=== PATIENT | male | born 1955 ===

== ENCOUNTER 2018-04-19 17:04 | Emergency (ER) | payer BC ==
--- OUTSIDE RECORDS SUMMARY | 2018-04-19 17:27 | XMS REPORT ---
:1955 External Reference #:[id number] Author Organization [facility] Address [address] [place] [id number] Phone [phone] Care Team Providers Name Role Phone Ismael Hardy MD Care Team Information It Compliance Manager Unavailable Ismael Hardy MD Primary Care Physician Unavailable Payers Type Date Identification Numbers Payment Provider Subscriber Commercial Policy Number: [id number] [facility] [employer] Name: Archana Mcconnell [facility] [address] [address] PayID: [id number] [place] [address] Problems Date Description Provider Status Onset: 11/02/2011 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 Active Onset: 11/15/2011 Nocturia - finding Rosa Juarez M.D. Active Onset: 11/15/2011 Benign prostatic hypertrophy with Rosa Juarez M.D. Active outflow obstruction Onset: 11/18/2012 Testicular hypofunction Rosa Juarez M.D. Active Onset: Finding of frequency of urination Active Onset: 04/01/2014 Disease of blood AND/OR Ismael Hardy MD Active blood-forming organ Onset: 04/17/2011 Benign prostatic hypertrophy Ismael Hardy MD Active without outflow obstruction Onset: 04/17/2011 Impaired fasting glycaemia Ismael Hardy MD Active Family History Date Family Member(s) Problem(s) Comments First Brother Colon Cancer Second Brother Heart Condition Social History Type Date Description Comments Marital Status Patient is Occupation Director [employer] Cigarette Use 03/20/2018 Former Cigarette Smoker quit 35 years ago Cigars Patient smoking status is unknown Pipe Patient smoking status is unknown ETOH Use 1-2 monthly Allergies, Adverse Reactions, Alerts Date Description Reaction Status Severity Comments 04/26/2011 NKDA active Medications Medication Date Status Form Strength Qnty SIG Indications Ordering Provider Testosterone 06/20/ Active Solution 200mg/ml 2ml 100mg (1/2cc) Arnold P Cypionate 2015 intramuscular MD Bimal every week code f (give full vial) 1ML Tuberculin 11/14/ Active Misc 21G X 1" 4unit for Arnold P Syringe 2015 1 ML s intramuscular MD Bimal Detachable injection Needle Slip Tip 21GX1" 3ML Luer-Tj 05/01/ Active Misc 21G X 4unit use onc weekly Arnold P Syringe 2012 1-1/2" 3 s MD Bimal 21G X 1-1/2" ML Anusol-HC 11/04/ Active Cream 2.5% 16uni apply q hs to Ring, 2011 ts rectal area MD Ismael Ibuprofen 10/06/ Active Tablets 200mg 2 Tabs PO Q 4 Ring, 2007 HRS prn MD Ismael Tylenol 05/02/ Active Tablets 325mg prn Ring, 2005 MD Ismael Zyrtec Allergy / Active Capsules 10mg 1 by mouth Unknown 0000 every day Cold & Flu / Active Misc Capsule over the Unknown Multi-Symptom 0000 counter as Daytime/Nightt directed chalo Prevacid / Active Capsules otc Unknown 0000 Testosterone 05/04/ Hx Solution 200mg/ml 10ml inject 07/25 Ty Juarez 2015 - milliliters Lee M, 06/20/ intramuscular M.D. 2016 every week code f (give full vial) Montchanin 03/12/ Hx Pellet 500mcg 6unit 1 as directed Ann 2016 - s Lee M, 12/25/ M.D. 2017 Testosterone 11/17/ Hx Solution 100mg/ml 8unit 0.5 Ann Cypsheyla 2016 - s milliliters Lee M, 05/04/ intramuscular M.D. 2015 once weekly injection code f Testosterone 11/14/ Hx Solution 100mg/ml 8unit 50 milliliters Elhassan , Cypionate 2015 - s intramuscular Lee M, 11/17/ once weekly M.D. 2015 injection code f Stendra 04/06/ Hx Tablets 200mg 6tabs as needed N52.01 Ann, 2013 - Lee M, 06/30/ M.D. 2016 Testosterone 06/15/ Hx Oil 200mg/ml 10ml inject 1 Elhassan, Cypionate 2012 - milliliters Lee M, 05/12/ intramuscular M.D. 2014 every 1 weeks intramuscular as directed code f Androgel Pump 12/30/ Hx Gel 20.25mg/A 2bott 4 pumps day Ann, 2012 - ct les code f Rosa Marinelli, 10/06/ (1.62%) M.D. 2013 Prilosec OTC 04/14/ Hx Tablets 20mg 1 po qd Ring, 2008 - DR Ismael MD 2015 Ibuprofen / Hx Capsules 42cap bid Unknown 0000 - s 2013 Prilosec / Hx Capsules 20mg 30cap Unknown 0000 - DR s 2015 Tylenol / Hx Liquid 650ml Unknown 0000 - 2015 Mobic / Hx Tablets 60tab 1 po bid Unknown 0000 - s 2013 Androgel Pump / Hx Gel 20.25mg/A Unknown 0000 - ct (1.62%) 2013 Depo-Testoster / Hx Oil 100mg/ml Unknown one 0000 - 2013 Zantac / Hx Tablets 150mg 1 by mouth Unknown 0000 - twice a day 2016 Medications Administered in Office Medication Date Status Form Strength Qnty SIG Indications Ordering Provider Testosterone Administered Injection Daivd Rudolph 75MG For 018 Donnie Doty One Pellet .A. Vital Signs Date Vital Result Comment 03/20/2018 Height 75 inches 6'3" Weight 248.00 lb Weight in kg's 112.493 BMI (Body Mass Index) 31.0 kg/m2 12/30/2017 Height 75 inches 6'3" Weight 240.00 lb Weight in kg's 108.864 BMI (Body Mass Index) 30.0 kg/m2 12/09/2017 Height 75 inches 6'3" Weight 246.00 lb Weight in kg's 111.586 BMI (Body Mass Index) 30.7 kg/m2 BP Systolic 126 mmHg BP Diastolic 82 mmHg Heart Rate 72 /min 11/07/2017 Height 75 inches 6'3" Weight 246.00 lb Weight in kg's 111.586 BMI (Body Mass Index) 30.7 kg/m2 BP Systolic 125 mmHg BP Diastolic 80 mmHg Heart Rate 71 /min Respiratory Rate 18 /min 07/31/2017 Height 75 inches 6'3" Weight 250.00 lb Weight in kg's 113.400 BMI (Body Mass Index) 31.2 kg/m2 BP Systolic 142 mmHg BP Diastolic 78 mmHg Heart Rate 70 /min Respiratory Rate 18 /min 07/01/2017 Height 75 inches 6'3" Weight 250.00 lb Weight in kg's 113.400 BMI (Body Mass Index) 31.2 kg/m2 BP Systolic 147 mmHg BP Diastolic 80 mmHg Heart Rate 59 /min Post Void Residual ml 142 Bladder Scan, Indication:retention 09/12/2016 Height 75 inches 6'3" Weight 250.00 lb Weight in kg's 113.400 BMI (Body Mass Index) 31.2 kg/m2 BP Systolic 125 mmHg right wrist audio BP Diastolic 75 mmHg right wrist audio Heart Rate 76 /min Body Temperature 99.1 F 05/13/2015 Height 75 inches 6'3" Weight 245.00 lb Weight in kg's 111.132 BMI (Body Mass Index) 30.6 kg/m2 BP Systolic 125 mmHg left wrist audio BP Diastolic 77 mmHg left wrist audio Heart Rate 58 /min Body Temperature 97.2 F 11/18/2012 Height 74 inches 6'2" Weight 240.00 lb Weight in kg's 108.86 BMI (Body Mass Index) 30.8 kg/m2 BP Systolic 134 mmHg right BP Diastolic 85 mmHg right Heart Rate 61 /min Body Temperature 98.1 F 11/15/2011 Height 74.25 inches 6'2.25" Weight 244.00 lb Weight in kg's 110.678 BMI (Body Mass Index) 31.1 kg/m2 BP Systolic 137 mmHg right wrist BP Diastolic 74 mmHg right wrist Heart Rate 63 /min Body Temperature 97.9 F 05/14/2011 BP Systolic 132 mmHg BP Diastolic 67 mmHg Heart Rate 58 /min Body Temperature 98.5 F 04/26/2011 BP Systolic 139 mmHg right wrist BP Diastolic 70 mmHg right wrist Heart Rate 62 /min Body Temperature 98.6 F Results Test Date Test Result H/L Range Note Laboratory test finding 03/11/2018 Testosterone 222.67 ng/dL Low 300.00- 1000.00 1 Total Psa Only 3.22 ng/mL 0.00-4.00 1 HCT 47.8 % 41.0-53.0 1 230 Ua Routine 12/09/2017 Ua Glucose Negative Ua Protein Negative Ua Nitrite Negative Ua Leuko 1+ Ua Blood Trace-lysed Ua Color Yellow Ua Ketones Negative Ua Clarity Clear Ua Specific [place] 1.020 1.003-1.030 Ua PH 5.0 5.0-7.5 Ua Bilirubin Negative Ua Urobilinogen 0.2 E.U./dL 0.0-1.0 Laboratory test finding 12/05/2017 Testosterone 1050.71 ng/dL High 300.00- 1000.00 Total Psa Only 2.43 ng/mL 0.00-4.00 Laboratory test finding 11/14/2017 Testosterone 492.86 ng/dL 300.00- 1000.00 HCT 50.8 % 41.0-53.0 Laboratory test finding 11/08/2017 Testosterone 260.16 ng/dL Low 300.00- 1000.00 230 Ua Routine 11/07/2017 Ua Glucose Negative Ua Protein Negative Ua Nitrite Negative Ua Leuko Trace Ua Blood Trace-intact Ua Color Yellow Ua Ketones Negative Ua Clarity Clear Ua Specific [place] <=1.005 1.003-1.030 Ua PH 5.0 5.0-7.5 Ua Bilirubin Negative Ua Urobilinogen 0.2 E.U./dL 0.0-1.0 CBS W/Automated Diff 10/31/2017 White Blood Count 6.6 K/uL 3.4-10.5 2 Red Blood Count 5.37 M/uL 4.20-5.80 2 Hemoglobin 16.2 gm/dL 12.8-17.0 2 Hematocrit 47.1 % 38.0-48.0 2 Mean Cell Volume 87.7 fl 80.0-96.0 2 Mean Corpuscular HGB 30.2 pg 27.0-33.0 2 Mean Corpuscular HGB Conc 34.4 g/dL 31.7-36.0 2 Platelet Count 214 K/uL 155-360 2 Red Cell Distri Width SD 40.7 fl 36-51 2 Red Cell Distri Width %CV 12.8 % 11.6-15.8 2 Mean Platelet Volume 9.5 fL 6.6-10.6 2 Neut% 52.1 % 33.0-73.0 2 Lymph % 31.8 % 20.0-42.0 2 Whitfield % 11.3 % High 0.0-10.0 2 Eo% 4.0 % 0.0-6.6 2 Bas% 0.8 % 0.0-1.1 2 Neut# 3.43 K/uL 1.8-7.0 2 Lymph # 2.09 K/uL 1.0-4.0 2 Whitfield # 0.74 K/uL 0.0-0.8 2 Eos # 0.26 K/uL 0.0-0.5 2 Baso # 0.05 K/uL 0.0-0.1 2 Liver Function Tests 10/31/2017 Total Protein 6.8 g/dL 6.4-8.2 2 Albumin 3.5 g/dL 3.4-5.0 2 Globulin 3.3 g/dL 1.9-4.3 2 Alb/Glob 1.1 ratio 2 Bilirubin,Total 0.4 mg/dL 0.2-1.0 2 Bilirubin,Direct 0.1 mg/dL 0.0-0.2 2 Bilirubin,Indirect 0.3 mg/dL 0.0-0.9 2 Sgot/Ast 26 U/L 15-37 2 SGPT/Alt 28 U/L 12-78 2 Alkaline Phosphatase 55 U/L 45-117 2 Laboratory test finding 10/31/2017 Prostate Specific Antigen 3.55 ng/mL < 4.0 2, 3 230 Ua Routine 07/31/2017 Ua Glucose Negative Ua Protein Negative Ua Nitrite Negative Ua Leuko Trace Ua Blood Negative Ua Color Yellow Ua Ketones Negative Ua Clarity Clear Ua Specific [place] <=1.005 1.003-1.030 Ua PH 5.5 5.0-7.5 Ua Bilirubin Negative Ua Urobilinogen 0.2 E.U./dL 0.0-1.0 Laboratory test finding 07/31/2017 % PSA 21.739 CBC With Differential 07/31/2017 WBC 6.1 X10*3/uL 4.1-11.0 RBC 5.6 x10*6/Ul 4.6-6.1 HGB 17.0 g/dL 13.5-18.0 HCT 51.3 % 41.0-53.0 MCV 91.2 fL 79.9-95.1 MCH 30.3 pg 27.0-32.0 MCHC 33.2 g/dL 32.0-36.0 RDW 11.7 % 10.5-14.5 PLT 179.7 10*3/uL 150.0-450.0 MPV 7.1 fL 7.1-10.7 %N 60.4 % 35.0-75.0 %L 26.7 % 16.0-52.0 %M 7.6 % 0.0-8.0 %E 2.6 % 0.0-5.0 %B 2.7 % 0.0-4.0 Luis 3.7 10*3/uL 1.8-7.7 Lym 1.6 10*3/uL 1.2-4.8 Whitfield 0.5 10*3u/L 0.0-0.8 Eos 0.2 10*3/uL 0.0-4.0 Baso 0.2 10*3/uL 0.0-0.2 Urine Microscopy 07/31/2017 Urine WBC 0-2 /HPF 0 - 5 Urine RBC 0-2 /HPF 0-2 Bacteria NEG /HPF Neg Crystals NEG /HPF Neg Epithelial Cells NEG /HPF Neg Sperm NEG /HPF Neg Yeast NEG /HPF Neg UACast NEG /LPF Neg Laboratory test finding 07/31/2017 Testosterone 448.37 ng/dL 300.00- 1000.00 Laboratory test finding 07/31/2017 Total Psa Only 2.76 ng/mL 0.00-4.00 Free PSA 0.6 ng/mL Hepatic Function Panel 07/31/2017 Albumin 4.0 g/dL 3.2-4.6 Alk Phos 53.0 U/L 45.0-117.0 Alt 30.0 U/L 0.0-55.0 Ast 23.0 U/L 11.0-39.0 Total Protien 6.4 g/dL 6.4-8.3 DBili 0.23 mg/dL 0.00-0.50 TBili 0.7 mg/dL 0.0-1.2 Globulin 2.4 230 Ua Routine 07/01/2017 Ua Glucose Negative Ua Protein Negative Ua Nitrite Negative Ua Leuko Negative Ua Blood Trace-intact Ua Color light yellow Ua Ketones Negative Ua Clarity clear Ua Specific [place] 1.010 1.003-1.030 Ua PH 6.0 5.0-7.5 Ua Bilirubin Negative Ua Urobilinogen 0.2 E.U./dL 0.0-1.0 Laboratory test finding 07/01/2017 Prostate Specific Antigen 2.99 ng/mL < 4.0 4, 5 Testosterone,Serum 122 ng/dL Low 264-916 4, 6 Liver Function Tests 07/01/2017 Total Protein 6.5 g/dL 6.4-8.2 4 Albumin 3.5 g/dL 3.4-5.0 4 Globulin 3.0 g/dL 1.9-4.3 4 Alb/Glob 1.2 ratio 4 Bilirubin,Total 0.4 mg/dL 0.2-1.0 4 Bilirubin,Direct 0.1 mg/dL 0.0-0.2 4 Bilirubin,Indirect 0.3 mg/dL 0.0-0.9 4 Sgot/Ast 21 U/L 15-37 4 SGPT/Alt 33 U/L 12-78 4 Alkaline Phosphatase 54 U/L 45-117 4 Laboratory test 06/20/2017 Testosterone,Serum 741 ng/dL 264-916 7, 8 finding PSA (Free And Total) 06/20/2017 Prostate-specific 3.5 ng/mL 0.0-4.0 7, 9 antigen,Seru PSA,Free 0.75 ng/mL N/A 7, 10 %Free PSA 21.4 % . 7, 11 Laboratory test finding 06/20/2017 PSA Total <pending> Testosterone <pending> CBS W/Automated Diff 06/20/2017 White Blood Count 5.3 K/uL 3.4-10.5 7 Red Blood Count 5.24 M/uL 4.20-5.80 7 Hemoglobin 15.6 gm/dL 12.8-17.0 7 Hematocrit 46.8 % 38.0-48.0 7 Mean Cell Volume 89.3 fl 80.0-96.0 7 Mean Corpuscular HGB 29.8 pg 27.0-33.0 7 Mean Corpuscular HGB Conc 33.3 g/dL 31.7-36.0 7 Platelet Count 198 K/uL 155-360 7 Red Cell Distri Width SD 41.9 fl 36-51 7 Red Cell Distri Width %CV 13.1 % 11.6-15.8 7 Mean Platelet Volume 9.7 fL 6.6-10.6 7 Neut% 52.4 % 33.0-73.0 7 Lymph % 33.4 % 20.0-42.0 7 Whitfield % 10.8 % High 0.0-10.0 7 Eo% 2.5 % 0.0-6.6 7 Bas% 0.9 % 0.0-1.1 7 Neut# 2.76 K/uL 1.8-7.0 7 Lymph # 1.76 K/uL 1.0-4.0 7 Whitfield # 0.57 K/uL 0.0-0.8 7 Eos # 0.13 K/uL 0.0-0.5 7 Baso # 0.05 K/uL 0.0-0.1 7 CBC No Diff 06/20/2017 Miscellaneous Test <pending> 230 Ua Routine 12/25/2016 Ua Glucose Negative Ua Protein Negative Ua Nitrite Negative Ua Leuko 1+ Ua Blood Negative Ua Color yellow Ua Ketones Negative Ua Clarity clear Ua Specifici [place] <=1.005 1.003-1.030 Ua PH 5.0 5.0-7.5 Ua Bilirubin Negative Ua Urobilinogen 0.2 E.U./dL 0.0-1.0 Laboratory test finding 12/22/2016 Testosterone,Serum 413 ng/dL 348-1197 12 Hemoglobin/Hematocrit 12/22/2016 Hemoglobin 16.9 gm/dL 12.8-17.0 12 Hematocrit 49.1 % High 38.0-48.0 12 Testosterone,Serum 12/22/2016 Comment (SEE NOTE) 12, 13 230 Ua Routine 09/12/2016 Ua Glucose Negative Ua Protein Negative Ua Nitrite Negative Ua Leuko Trace Ua Blood Negative Ua Color yellow Ua Ketones Negative Ua Clarity clear Ua Specifici [place] 1.010 1.003-1.030 Ua PH 5.5 5.0-7.5 Ua Bilirubin Negative Ua Urobilinogen 0.2 E.U./dL 0.0-1.0 Laboratory test finding 09/10/2016 Prostate Specific 2.40 ng/mL < 4.0 14 , 15 Antigen Testosterone,Serum 614 ng/dL 348-1197 14 CBC 09/10/2016 White Blood Count 6.6 K/uL 3.4-10.5 14 Red Blood Count 5.70 M/uL 4.20-5.80 14 Hemoglobin 16.9 gm/dL 12.8-17.0 14 Hematocrit 50.2 % High 38.0-48.0 14 Mean Cell Volume 88.1 fl 80.0-96.0 14 Mean Corpuscular HGB 29.6 pg 27.0-33.0 14 Mean Corpuscular HGB Conc 33.7 g/dL 31.7-36.0 14 Platelet Count 225 K/uL 150-400 14 Red Cell Distri Width %CV 13.0 % 11.6-15.8 14 Mean Platelet Volume 10.0 fL 6.6-10.6 14 Testosterone,Serum 09/10/2016 Comment (SEE NOTE) 14, 16 230 Ua Routine 03/12/2016 Ua Glucose Negative Ua Protein Negative Ua Nitrite Negative Ua Leuko Trace Ua Blood Trace-lysed Ua Color yellow Ua Ketones Negative Ua Clarity clear Ua Specifici [place] <=1.005 1.003-1.030 Ua PH 5.0 5.0-7.5 Ua Bilirubin Negative Ua Urobilinogen 0.2 E.U./dL 0.0-1.0 CBC W/O Diff 03/07/2016 Hemoglobin 15.7 12.8-17.0 Hematocrit 46.9 38.0-48.0 Laboratory test finding 03/07/2016 PSA Total 2.06 <4.0 Testosterone Free & Total 03/07/2016 Testosterone 306 Low 348-1197 Testosterone Free Direct 48.7 High 9.0-46.0 Laboratory test finding 12/09/2015 Testosterone 019 903-2289 CBC W/O Diff 12/09/2015 Hemoglobin 15 12.8-17 Hematocrit 45.2 38-48 Laboratory test finding 12/09/2015 PSA Total 2.64 230 Ua Routine 11/15/2015 Ua Glucose Negative Ua Protein Negative Ua Nitrite Negative Ua Leuko 1+ Ua Blood Negative Ua Color yellow Ua Ketones Negative Ua Clarity clear Ua Specifici [place] 1.025 1.003-1.030 Ua PH 5.0 5.0-7.5 Ua Bilirubin Negative Ua Urobilinogen 0.2 E.U./dL 0.0-1.0 Laboratory test finding 11/11/2015 Testosterone 124 Low 348-1197 PSA Total 2.02 230 Ua Routine 05/13/2015 Ua Glucose Negative Ua Protein Negative Ua Nitrite Negative Ua Leuko 1+ Ua Blood Negative Ua Color yellow Ua Ketones Negative Ua Clarity clear Ua Specific [place] 1.015 1.003-1.030 Ua PH 7.0 5.0-7.5 Ua Bilirubin Negative Ua Urobilinogen 0.2 E.U./dL 0.0-1.0 Laboratory test finding 04/18/2015 Bas% 1.0 % 0.1-1.0 Baso # 0.05 K/uL Low 0.1-0.2 Eo% 3.3 % 0.0-5.0 Eos # 0.16 K/uL 0.0-0.5 Hematocrit 43.6 % 38.0-48.0 Hemoglobin 14.6 gm/dL 12.8-17.0 Lymph # 1.80 K/uL 1.8-7.0 Lymph % 37.3 % 17.0-56.0 Mean Cell Volume 89.2 fl 80.0-96.0 Mean Corpuscular HGB 29.9 pg 27.0-33.0 Mean Corpuscular HGB Conc 33.5 g/dL 31.7-36.0 Mean Platelet Volume 10.0 fL 6.6-10.6 [place]field # 0.47 K/uL 0.0-0.8 [place]field % 9.7 % 0.0-10.0 Neut# 2.35 K/uL 1.8-7.0 Neut% 48.7 % 33.0-73.0 Platelet Count 209 K/uL 150-400 Prostate Specific Antigen 1.52 ng/mL Red Blood Count 4.89 M/uL 4.20-5.80 Red Cell Distri Width %CV 12.7 % 11.6-15.8 Red Cell Distri Width SD 41.2 fl 36-51 White Blood Count 4.8 K/uL 3.4-10.5 CBC W/O Diff 10/06/2014 Hemoglobin 16.4 12.8-17 Hematocrit 48.1 High 38-48 CBC W/O Diff 07/27/2014 Hemoglobin 15.9 12.8-17 Hematocrit 47.5 38-48 #Ua Routine 06/22/2014 Ua Glucose Negative Ua Protein Negative Ua Nitrite Negative Ua Leuko Negative Ua Blood Negative Ua Color yellow Ua Ketones Negative Ua Clarity clear Ua Specific [place] 1.010 1.003-1.030 Ua PH 7.0 5.0-7.5 Ua Bilirubin Negative Ua Urobilinogen 0.2 E.U./dL 0.0-1.0 Laboratory test finding 06/08/2014 Testosterone 075 217-8225 CBC W/O Diff 06/08/2014 Hemoglobin 16.5 12.8-17.0 Hematocrit 49.0 High 38.0-48.0 #Ua Routine 05/11/2014 Ua Glucose Negative Ua Protein Negative Ua Nitrite Negative Ua Leuko Negative Ua Blood Negative Ua Color yellow Ua Ketones Negative Ua Clarity clear Ua Specific [place] 1.010 1.003-1.030 Ua PH 6.0 5.0-7.5 Ua Bilirubin Negative Ua Urobilinogen 0.2 E.U./dL 0.0-1.0 Laboratory test finding 04/06/2014 Total Psa Only 1.46 ng/mL 0.00-4.00 Testosterone 941.73 ng/dL 300.00-1000.00 #Ua Routine 04/06/2014 Ua Glucose Negative Ua Protein Negative Ua Nitrite Negative Ua Leuko Negative Ua Blood Negative Ua Color yellow Ua Ketones Negative Ua Clarity clear Ua Specific [place] 1.010 1.003-1.030 Ua PH 7.0 5.0-7.5 Ua Bilirubin Negative Ua Urobilinogen 0.2 E.U./dL 0.0-1.0 #Ua Routine 10/06/2013 Ua Glucose Negative Ua Protein Negative Ua Nitrite Negative Ua Leuko Negative Ua Blood Trace-intact Ua Color yellow Ua Ketones Negative Ua Clarity clear Ua Specific [place] 1.010 1.003-1.030 Ua PH 6.0 5.0-7.5 Ua Bilirubin Negative Ua Urobilinogen 0.2 E.U./dL 0.2-1 #Ua Routine 09/22/2013 Ua Glucose Negative Ua Protein Negative Ua Nitrite Negative Ua Leuko Negative Ua Blood Negative Ua Color yellow Ua Ketones Negative Ua Clarity clear Ua Specific [place] 1.015 1.003-1.030 Ua PH 6.5 5.0-7.5 Ua Bilirubin Negative Ua Urobilinogen 0.2 E.U./dL 0.2-1 BUN & Creatinine ([facility]) 09/22/2013 BUN - Urea Nitrogen 15 7-25 Creatinine Serum 1.03 0.70-1.33 Urine Microscopic 06/23/2013 Urine WBC NEG /HPF Urine RBC 3-5 /HPF Bacteria NEG /HPF Crystals NEG /HPF Epithelial Cells NEG /HPF Sperm NEG /HPF Yeast NEG /HPF Laboratory test finding 06/23/2013 Total PSA 1.66 ng/mL 0.00-4.00 #Ua Routine 06/23/2013 Ua Glucose Negative Ua Protein Negative Ua Nitrite Negative Ua Leuko Negative Ua Blood 2+ Ua Color yellow Ua Ketones Negative Ua Clarity clear Ua Specific [place] 1.015 1.003-1.030 Ua PH 6.0 5.0-7.5 Ua Bilirubin Negative Ua Urobilinogen 0.2 E.U./dL 0.2-1 Laboratory test finding 03/31/2013 Total PSA 1.63 ng/mL 0.00-4.00 Testosterone 207.66 ng/dL Low 300.00-1000.00 Urinalysis 03/31/2013 Neg 6.5 Neg 0.2 Neg Urine Glucose Neg Urine Ketones Neg Urine Leukocyte Esterase Trace Urine Nitrites Neg Urine Specific [place] =1.005 Total Testosterone 03/31/2013 207.66 ng/dL 300.00-1000.00 PSA 03/31/2013 Total PSA 1.63 ng/mL 0.00-4.00 #Ua Routine 11/18/2012 Ua Glucose Negative Ua Protein Negative Ua Nitrite Negative Ua Leuko Negative Ua Blood Negative Ua Color Not Entered Ua Ketones Negative Ua Clarity Not Entered Ua Specific [place] <=1.005 Ua PH 5.5 Ua Bilirubin Negative Ua Urobilinogen 0.2 E.U./dL Laboratory test finding 11/18/2012 Total PSA 1.74 ng/mL 0.00-4.00 Testosterone 204.79 ng/dL Low 300.00-1000.00 Urinalysis 11/15/2011 Not Entered Neg Neg Neg 0.2 E.U./dL Not Entered 5.5 Urine Glucose Neg Urine Ketones Neg Urine Leukocyte Esterase Trace Urine Nitrites Neg Urine Specific [place] =1.005 #Ua Routine 11/15/2011 Ua Glucose Negative Ua Protein Negative Ua Nitrite Negative Ua Leuko Trace Ua Blood Negative Ua Color Not Entered Ua Ketones Negative Ua Clarity Not Entered Ua Specific [place] <=1.005 Ua PH 5.5 Ua Bilirubin Negative Ua Urobilinogen 0.2 E.U./dL PSA 11/12/2011 206.49 ng/dL 225.00-972.00 Total PSA 1.53 ng/mL 0.00-4.00 Laboratory test finding 11/12/2011 Total PSA 1.53 ng/mL 0.00-4.00 Testosterone 206.49 ng/dL Low 225.00-972.00 #Ua Routine 05/14/2011 Ua Glucose Negative Ua Prot/Creat Normal Ua Protein Negative Ua Nitrite Negative Ua Leuko Negative Ua Blood Negative Ua Color Not Entered Ua Ketones Negative Ua Clarity Not Entered Ua Specific [place] 1.020 Ua PH 5.0 Ua Creatinine 200 mg/dL Urinalysis 05/14/2011 Not Entered Neg 5.0 Neg Not Entered 200 mg/dL Normal Urine Glucose Neg Urine Ketones Neg Urine Leukocyte Esterase Neg Urine Nitrites Neg Urine Specific [place] 1.020 Laboratory test finding 04/26/2011 Urine Cytology Void (Amp/CBL) x #Ua Routine 04/26/2011 Ua Glucose Negative Ua Prot/Creat Normal Ua Protein Negative Ua Nitrite Negative Ua Leuko Negative Ua Blood Trace-intact Ua Color Not Entered Ua Ketones Negative Ua Clarity Not Entered Ua Specific [place] 1.020 Ua PH 5.0 Ua Creatinine 200 mg/dL Urinalysis 04/26/2011 200 mg/dL 5.0 Neg Trace-intact Not Entered Not Entered Normal Urine Glucose Neg Urine Ketones Neg Urine Leukocyte Esterase Neg Urine Nitrites Neg Urine Specific [place] 1.020 1 to be done in February 2018 2 E29.1 3 THIS ASSAY IS NOT INTENDED A CANCER SCREENING TEST The concentration of PSA in a given specimen, determined with assays from different manufacturers, can vary due to differences in assay methods and reagent specificity. Values obtained from different assay methods cannot be used interchangeably. Method: Asl [employer] Chemiluminescent immunoassay. 4 E29.1 R97.20 5 THIS ASSAY IS NOT INTENDED A CANCER SCREENING TEST The concentration of PSA in a given specimen, determined with assays from different manufacturers, can vary due to differences in assay methods and reagent specificity. Values obtained from different assay methods cannot be used interchangeably. Method: Asl [employer]yticalta Chemiluminescent immunoassay. 6 Adult male reference interval is based on a population of healthy nonobese males (BMI <30) between 19 and 39 years old. Stevenson et.al. JCEM 2017,102;8980-1293. PMID: [id number]. Performed at: [address] [id number] [employer] Inspector: Selma Pereyra MD, Phone: [phone] 7 E29.1,N40.1 8 Adult male reference interval is based on a population of healthy nonobese males (BMI <30) between 19 and 39 years old. anita Gamino.al. JCEM 2017,102;0493-5431. PMID: [id number]. Performed at: [facility] [employer] [id number] Outboard Motor Inspector: Selma Pereyra MD, Phone: [phone] 9 Chaitanya ECLIA methodology. According to the [place] [employer], Serum PSA should decrease and remain at undetectable levels after radical prostatectomy. The AUA defines biochemical recurrence as an initial PSA value 0.2 ng/mL or greater followed by a subsequent confirmatory PSA value 0.2 ng/mL or greater. Values obtained with different assay methods or kits cannot be used interchangeably. Results cannot be interpreted as absolute evidence of the presence or absence of malignant disease. 10 Chaitanya ECLIA methodology. 11 The table below lists the probability of prostate cancer for men with non-suspicious CHICA results and total PSA between 4 and 10 ng/mL, by patient age (Catalona et al, JEREMIAH 1998, 279:1542). % Free PSA 50-64 yr 65-75 yr 0.00-10.00% 56% 55% 10.01-15.00% 24% 35% 15.01-20.00% 17% 23% 20.01-25.00% 10% 20% >25.00% 5% 9% Please note: Le et al did not make specific recommendations regarding the use of percent free PSA for any other population of men. 12 E29.1 13 Adult male reference interval is based on a population of lean males up to 40 years old. Performed at: [facility] [employer] [id number] [employer]board Motor Inspector: Selma Pereyra MD, Phone: [phone] 14 R97.2 E29.1 15 THIS ASSAY IS NOT INTENDED A CANCER SCREENING TEST The concentration of PSA in a given specimen, determined with assays from different manufacturers, can vary due to differences in assay methods and reagent specificity. Values obtained from different assay methods cannot be used interchangeably. Method: Siemens Dimension Liberty Chemiluminescent immunoassay. 16 Adult male reference interval is based on a population of lean males up to 40 years old. Performed at: - [facility] [id number] Outboard Motor Inspector: Selma Pereyra MD, Phone: [phone] Procedures Date CPT Code Description Status Comment 12/30/2017 97416 Subcutaneous,Hormone Pellet Implanation Completed (Implantation Of Estradio 07/01/2017 57935 Bladder Scan, Post Voiding Residual Urine Completed 02/14/2016 Colonoscopy Completed neg 11/15/2015 38247 Bladder Scan, Post Voiding Residual Urine Completed 05/13/2015 30846 Bladder Scan, Post Voiding Residual Urine Completed 10/06/2013 36857 Cystourethroscopy, Separate Procedure Completed 06/29/2013 18982 Ultrasound Retro Renal Real Time With Image Completed Limited Global 11/15/2011 84238 Ultrasound, Pelvic Limited (Bladder US) Completed Encounters Type Date Location Provider CPT E/M Dx Office Visit 03/20/2018 3:30p [facility] 07920 R97.20 Urology Craig Doty E29.1 Z12.5 Office Visit 12/09/2017 3:45p [facility] Pierre 12973 E29.1 Urology Donnie Doty.[facility] Office Visit 11/07/2017 4:00p Elvis Pierre 48436 E29.1 Urology Craig Doty R97.20 Office Visit 07/31/2017 8:30a [place] [address] E29.1 Office Visit 07/01/2017 3:30p Elvis Pierre 73118 E29.1 Craig Doty R97.20 N40.1 R33.9 Office Visit 12/25/2016 3:10p [facility], 93937 E29.1 Heather Trejo52.01 N40.1 Office Visit 09/12/2016 3:10p [place] Rosa Juarez, 47416 R97.20 M.D. E29.1 N52.01 Office Visit 03/12/2016 3:20p [facility] Rosa Juarez, 59673 R97.2 M.D. E29.1 N52.01 N48.6 Office Visit 12/15/2015 3:10p [place] Rosa Juarez, 00956 E29.1 M.D. N40.1 N52.01 R97.2 Office Visit 11/15/2015 3:20p [place] Rosa Juarez, 72254 E29.1 M.D. N40.1 N52.01 R33.9 Office Visit 05/13/2015 8:10a [facility] Rosa Juarez, 96577 N40.1 M.D. N52.01 E29.1 R33.9 Office Visit 06/22/2014 8:00a [place] Rosa Juarez, 86056 600.01 M.D. 607.84 257.2 Office Visit 05/11/2014 8:00a [place] Rosa Juarez, 78595 600.01 M.D. 607.84 257.2 Office Visit 04/06/2014 9:40a [place] Rosa Juarez, 91534 600.01 M.D. 257.2 607.84 Office Visit 09/22/2013 8:50a [place] Rosa Juarez, 66813 599.72 M.D. 607.85 257.2 Office Visit 06/23/2013 9:20a [facility] Rosa Juarez, 37129 607.84 M.D. 607.85 257.2 599.72 788.41 Office Visit 12/30/2012 8:00a [place] Rosa Juarez, 71374 607.84 M.D. 607.85 257.2 600.01 Office Visit 11/18/2012 8:40a [place] Rosa Juarez, 59970 607.84 M.D. 607.85 257.2 599.72 Office Visit 11/15/2011 8:40a [facility] Rosa Juarez, 68264 607.84 M.D. 607.85 788.4-1 257.1 600.01 Office Visit 05/14/2011 3:10p [place] Rosa Juarez, 40069 607.85 M.D. 607.84 257.1 Office Visit 04/26/2011 2:45p 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 Oxleobl11/30/2018 3:30 pm - Craig Castro at [place] [id number] - Craig CastroR97.20 Elevated prostate specific antigen [PSA] Comments:I'm going to repeat his PSA in 3 months. If he continues upward going to need to consider a prostatebiopsy. We also briefly touched on the 4K score which may give us some information helping us make this decision. Patient understands we'll keep his follow-upE29.1 Testicular hypofunctionComments: Reinitiate testosterone supplementation. Prescription refill fax to pharmacy. He understands the importance of monitoring we'll keep track of his hematocrit. Most recent is 47.8Z12.5 Encounter for screening for malignant neoplasm of prostateComments:Exam is benign. PSA trend suspicious. Follow-up 3 months
--- NOTE | 2018-04-19 19:20 | UC ---
Back Pain HPI - HPI Summary HPI Summary: C/O low back pain, radiating down the left leg with both feet having numbness. Better with sitting. Worse with walking. - History of Current Complaint Chief Complaint: UCBackPain Stated Complaint: SHARP PAIN LFT SIDE OF BACK TO TOES Time Seen by Provider: 04/19/18 19:09 Hx Obtained From: Patient Onset/Duration: Sudden Onset, Lasting Weeks - 1, Worse Since - onset Timing: Constant Severity Initially: Moderate Severity Currently: Severe Pain Intensity: 8 Back Pain: Is Discrete @ - left back/ hip, Radiates To - down to the toes. Character: Sharp, Burning Aggravating Factor(s): Walking Alleviating Factor(s): Position Associated Signs And Symptoms: Positive: Numbness. Negative: Weakness, Flank Pain, Bladder Incontinence, Bowel Incontinence, Pain with Weight Bearing - Allergies/Home Medications Allergies/Adverse Reactions: Allergies Allergy/AdvReac Type Severity Reaction Status Date / Time No Known Allergies Allergy Verified 04/19/18 17:18 PMH/Surg Hx/FS Hx/Imm Hx Previously Healthy: Yes - Surgical History Surgical History: None Surgery Procedure, Year, and Place: Tonsils - Family History Known Family History: Positive: Cardiac Disease, Hypertension Negative: Diabetes - Social History Occupation: Employed Full-time Lives: With Family Alcohol Use: Occasionally Substance Use Type: None Smoking Status (MU): Former Smoker Review of Systems Musculoskeletal: Arthralgia - left lower back Neurological: Paresthesia - both legs, left > right, Numbness Is Patient Immunocompromised?: No All Other Systems Reviewed And Are Negative: Yes Physical Exam Triage Information Reviewed: Yes Appearance: Well-Appearing, No Pain Distress, Well-Nourished Vital Signs: Initial Vital Signs Temp 98.3 F 04/19/18 17:12 Pulse 63 04/19/18 17:12 Resp 18 04/19/18 17:12 BP 141/91 04/19/18 17:12 Pulse Ox 100 04/19/18 17:12 Vital Signs Reviewed: Yes Eyes: Positive: Conjunctiva Inflamed Neck exam: Normal Respiratory Exam: Normal Cardiovascular Exam: Normal Musculoskeletal: Positive: ROM Limited @ - lumbar spine. Increased pain with, Other: - Tender over the Left SI joint and the sacrum midline. Neurological Exam: Other - DTR 2+ and symmetric patella and achilles Neurological: Positive: Other: - Pinprick sensation diminshed Left L5 and hypersensitive S1 bilaterally Psychological Exam: Normal Skin Exam: Normal Back Pain Course/Dx - Differential Dx/Diagnosis Differential Diagnosis/HQI/PQRI: Arthritis, Herniated Disc, Strain, Sprain Provider Diagnoses: Osteoarthritis lumbar spine. Lumbar radiculopathy. Acute sacroiliitis. Degenerative disc disease. Discharge - Sign-Out/Discharge Documenting (check all that apply): Patient Departure All imaging exams completed and their final reports reviewed: No - Discharge Plan Condition: Stable Disposition: HOME Prescriptions: Gabapentin 300 mg PO TID #90 capsule predniSONE TAB* [Deltasone 20 MG TAB*] 20 mg PO DAILY #18 tab Patient Education Materials: Lumbar Disc Herniation (ED), Sacroiliitis (ED), Prednisone (By mouth) Referrals: Ismael Hardy MD [Primary Care Provider] - Additional Instructions: Please follow up with a chiropractor on Saturday. GABAPENTIN: Gabapentin is an anti-seizure medication that is more often used for nerve pain. It helps to stabilize the nerve to stop the pain. Its primary side effect is sedation which will improve over time. Most people will start with only one capsule 1 to 2 hours before bed, but if your pain is more severe you may want to start with one capsule twice a day. If the pain is still an issue after another 1-2days the dose may be increased to a maximum of 1 capsule 3 times a day. Decrease the dose by one capsule a day if there is excessive sedation or it is not working. You can also decrease it to discontinue it if the pain is resolving. - Billing Disposition and Condition Condition: STABLE Disposition: Home
[2018-04-19] MEDS ORDERED: predniSONE TAB* 20 MG PO ONE (19:23)
[2018-04-19 19:46] VITALS: BP 141/81
--- NOTE | 2018-04-20 07:23 | RAD ---
HISTORY: left L5S1 radiculitis COMPARISONS: None VIEWS: 5 , Frontal, lateral, coned-down lateral sacral, and bilateral oblique views of the lumbar spine. FINDINGS: ALIGNMENT: The alignment is normal. VERTEBRAL BODIES: There is multilevel anterolateral marginal osteophyte formation most pronounced at L3-L4 and L4-L5. JOINTS: There is diffuse facet osteoarthritis. This is most pronounced at L2-L3, L3-L4, L4-L5 and L5-S1. INTERVERTEBRAL DISCS: There is diffuse loss of intervertebral disc height. SOFT TISSUE: Unremarkable. OTHER: The pelvis is unremarkable. The lung bases are clear. IMPRESSION: DEGENERATIVE DISC DISEASE AND OSTEOARTHRITIS. R1
--- NOTE | 2018-04-20 08:33 | UC ---
- Progress Note Progress Note: X ray report reviewed. NO findings inconsistent with exam and history. Discharge - Sign-Out/Discharge Documenting (check all that apply): Post-Discharge Follow Up All imaging exams completed and their final reports reviewed: Yes - Discharge Plan Condition: Stable Disposition: HOME Prescriptions: Gabapentin 300 mg PO TID #90 capsule predniSONE TAB* [Deltasone 20 MG TAB*] 20 mg PO DAILY #18 tab Patient Education Materials: Prednisone (By mouth), Lumbar Disc Herniation (ED) , Sacroiliitis (ED) Referrals: Ismael Hardy MD [Primary Care Provider] - Additional Instructions: Please follow up with a chiropractor on Saturday. GABAPENTIN: Gabapentin is an anti-seizure medication that is more often used for nerve pain. It helps to stabilize the nerve to stop the pain. Its primary side effect is sedation which will improve over time. Most people will start with only one capsule 1 to 2 hours before bed, but if your pain is more severe you may want to start with one capsule twice a day. If the pain is still an issue after another 1-2days the dose may be increased to a maximum of 1 capsule 3 times a day. Decrease the dose by one capsule a day if there is excessive sedation or it is not working. You can also decrease it to discontinue it if the pain is resolving. - Billing Disposition and Condition Condition: STABLE Disposition: Home
== END 2018-04-19 20:07 | disposition home or self-care (01) ==
LOC: UCCORT 17:04
DX: M47.9 Spondylosis, unspecified (principal); M54.16 Radiculopathy, lumbar region; M46.1 Sacroiliitis, not elsewhere classified
CPT/HCPCS: 72110; 99212; G0463; J7512